=== PATIENT | female | born 1970 | race Caucasian/White ===

== ENCOUNTER 2019-09-16 03:11 | Emergency (ER) | payer OTHER, SELFPAY ==
[2019-09-16 03:12] VITALS: BP 137/66; PULSE 53; RESP 15; TEMP 36.4; O2SAT 100; BMI 23.9
--- NOTE | 2019-09-16 03:28 | ED.VISSUMM ---
- ER Visit Summary Date of Service: 09/16/19 Chief Complaint: Epigastric and upper abdominal pain with nausea and vomiting History of Present Illness: The patient is a 49 F no seen past medical or surgical history. They states around 1900 she is having having upper abdominal pain after eating dinner and having a shot of rum and one beer. She denies any fever or chills. Said recently she is not had any problems. Denies any dysuria. No prior abdominal surgeries. No melena. Physical Examination: Middle-aged female vital signs stable afebrile. H EENT exam unremarkable. Neck nontender no lymphadenopathy. Lungs clear to auscultation bilaterally. Heart regular rhythm rate about 60 no murmur. Abdomen soft nondistended normal bowel sounds no peritoneal signs. She points to the upper abdomen epigastric area but is not reproducibly tender. There is no distention. No hernia or masses. No Bhakta sign no McBurney's point tenderness. Patient moving all 4 extremities. Calves are nontender without edema. Neurologically she is awake alert with no focal motor deficits. Test Results: CBC shows white count 11.4. Hemoglobin 13. No bands. Chemistries normal normal creatinine and gap. Liver enzymes normal. Amylase and lipase both normal. Emergency Department Course and Treatment: Patient with upper abdominal pain with nausea and vomiting. Treated with IV fluids, morphine and Zofran. Labs to be obtained. Repeat exam at 4:05 AM patient started to have some improvement to her nausea. Her labs currently unremarkable on the give her second dose of Zofran and Protonix for possible gastritis. At 4:50AM patient's abdomen is benign. Is nondistended. She really did not have any reproducible tenderness. She still has some cramping. She was given a second dose of morphine and Zofran. She will be reassessed. Much better at 5:33 AM. Abdomen is completely benign. She is comfortable as is her with her being discharged to home. Treatment Plan: Zofran for nausea. Protonix for possible gastritis. And Bentyl for cramping. [place] diet. Plenty of fluids and rest. Follow-up with not improving. Return if worse. Disposition: Discharge Impression: Acute upper abdominal pain with nausea and vomiting Acute viral syndrome Acute gastritis This note was generated with [employer] software. It may contain incorrect words, spelling, and punctuation that were not noted in review of the chart prior to signing ED Disposition - Plan for ED Patient: Disposition: Home or Assisted Living Instructions: ED Abdominal Pain Unkn Cause Fem Prescriptions: Pantoprazole Sodium [Protonix] 40 mg PO BID #20 tab Prescription Printed Ondansetron [Zofran Odt] 4 mg PO Q8H PRN PRN #10 tab PRN Reason: Nausea Prescription Printed Referrals: Humberto Hale MD [STAFF PHYSICIAN] - 3-5 Days if not improving Additional Instructions: Plenty of fluids and rest. Increase your diet slowly as tolerated. Zofran as needed for nausea.
--- NOTE | 2019-09-16 03:31 | EKG12_ITS ---
Test Reason : ABD PAIN Blood Pressure : / mmHG Vent. Rate : 046 BPM Atrial Rate : 046 BPM P-R Int : 176 ms QRS Dur : 090 ms QT Int : 512 ms P-R-T Axes : 065 082 060 degrees QTc Int : 448 ms Sinus bradycardia Otherwise normal ECG Confirmed by FRANCO DIEZ, ERIN ([id number]), online editor MARCELLO BORDEN ([id number]) on 09/17/2019 11:14:47 AM Referred By: GIOVANNI Confirmed By:ERIN GAMEZ MD
[2019-09-16] MEDS: Ondansetron 4 MG/2 ML Vial IV ×2 (03:34→04:08)
[2019-09-16] MEDS: Morphine 4 MG/ML Syringe IV (03:35)
[2019-09-16] MEDS: 0.9% Normal Saline 1,000 ML 1000 ML IV (03:35)
[2019-09-16 03:36] LABS: Absolute Lymphocyte Count 2.19 X10^3/uL (0.83-4.51); Absolute Neutrophil Count 8.6 X10^3/uL (2.0-7.7); Basophil# 0.04 X10^3/uL; Basophil% 0.3 % (0-1); Eosinophil# 0.07 X10^3/uL; Eosinophils% 0.6 % (0-5); Hematocrit 41.2 % (37-47); Hemoglobin 13.4 g/dL (12.0-15.0); Lymphocyte # 2.19 X10^3/ul (4.0); Lymphocyte % 19.2 % (19-41); Mean Corp Hgb Conc 32.5 g/dL (32-36); Mean Corpuscular Hgb 30.5 pg (27.0-32.0); Mean Corpuscular Volume 93.8 fL (81-99); Monocyte# 0.49 X10^3/uL; Monocyte% 4.3 % (0-10); NRBC Flagged by Analyzer 0 % (0-5); Neutrophil # 8.61 X10^3/uL (2.7-7.7); Neutrophil % 75.3 % (47-70); Platelet Count 459 K/mm3 (150-450); RBC Distribution Width CV 12.9 % (11.6-14.6); RBC Distribution Width SD 44.4 fl (35.1-43.9); Red Blood Count 4.39 M/mm3 (4.2-5.4); White Blood Count 11.4 K/mm3 (4.4-11.0)
[2019-09-16 04:00] LABS: AST(SGOT) 18 U/L (15-37); Alanine Aminotransfer ALT/SGPT 20 U/L (13-56); Albumin, Serum 3.6 g/dL (3.2-5.0); Alkaline Phosphatase 45 U/L (45-117); Amylase 40 U/L (25-115); Anion Gap 8 (5-15); BUN 14 mg/dL (7-18); BUN/Creat Ratio 16.1 RATIO (10-20); Chloride 106 mmol/L (98-107); Creatinine, Serum 0.87 mg/dL (0.55-1.02); EST Glomerular Filtration Rate 74 mL/min (>60); Est Glom Filt Rate - Afr Amer 90 mL/min (>60); Estimated Creatinine Clearance 63.22 ml/min; Globulin 3.7 g/dL (2.2-4.2); Glucose 115 mg/dL (74-106); Lipase 112 U/L (73-393); Potassium 3.8 mmol/L (3.5-5.1); Protein, Total 7.3 g/dL (6.4-8.2); Sodium Level 140 mmol/L (136-145)
--- NOTE | 2019-09-16 04:12 | ED.DEP ---
ED Disposition - Plan for ED Patient: Disposition: Home or Assisted Living Instructions: ED Abdominal Pain Unkn Cause Fem Prescriptions: Dicyclomine HCl [Bentyl] 10 mg PO TIDAC #10 cap Prescription Printed Pantoprazole Sodium [Protonix] 40 mg PO BID #20 tab Prescription Printed Ondansetron [Zofran Odt] 4 mg PO Q8H PRN PRN #10 tab PRN Reason: Nausea Prescription Printed Referrals: Humberto Hale MD [STAFF PHYSICIAN] - 3-5 Days if not improving Additional Instructions: Plenty of fluids and rest. Increase your diet slowly as tolerated. Zofran as needed for nausea.
[2019-09-16] MEDS: morphine 8 MG/ML Syringe 6 MG IV (04:43)
[2019-09-16 05:46] VITALS: BP 108/63; PULSE 56; RESP 17; O2SAT 98
[2019-09-16] MEDS: Dicyclomine 10 MG Capsule PO (05:51)
== END 2019-09-16 05:52 | disposition home or self-care (01) ==
PROVIDERS: Emergency Provider Emergency Medicine; PCP Family Medicine
DX: R10.10 Upper abdominal pain, unspecified (principal); R11.2 Nausea with vomiting, unspecified; B34.9 Viral infection, unspecified; K29.00 Acute gastritis without bleeding; R93.2 Abnormal findings on diagnostic imaging of liver and biliary tract; R68.83 Chills (without fever); M54.9 Dorsalgia, unspecified
CPT/HCPCS: 74177; 80048; 80053; 80076; 81001; 82150; 83690; 84703; 85025; 87635; 93005; 96361; 96374; 96375; 96376; 99284; 99285; G2023; J7030; Q9967; A4216; J2405; J3490; U0003

== ENCOUNTER 2019-09-16 17:17 | Emergency (ER) | payer OTHER, SELFPAY ==
[2019-09-16 03:12] VITALS: BMI 23.9
[2019-09-16 17:17] VITALS: BP 143/65; PULSE 52; RESP 16; TEMP 36.2; O2SAT 100; BMI 23.5
--- NOTE | 2019-09-16 17:36 | CT_ITS ---
We are attempting to reach an attending provider to discuss findings. An addendum with communication details will be sent when the communication is complete. STUDY: CT ABDOMEN AND PELVIS WITH CONTRAST REASON FOR EXAM: Female, 49 years old. PT STATED ABDOMINAL PAIN NEAR UMBILICAL REGION, NO HX OF SURGERY RADIATION DOSAGE (If Supplied By Facility): CTDIvol = ( 11.84 ) mGy, DLP = ( 506.95 ) mGycm TECHNIQUE: Transaxial images were obtained from the dome of the diaphragm to the symphysis pubis without oral contrast. Oral and amp; IV Readi-CAT and amp; 100mL Isovue-300 was administered. Sagittal and coronal images were reconstructed. Individualized dose optimization techniques were used for this CT. COMPARISON: None. FINDINGS: The visualized lung bases are unremarkable. The visualized portions of the heart are within normal limits. There is a mottled reticular heterogeneous enhancement pattern of the liver. Normal gallbladder and extrahepatic biliary system. Normal spleen. Normal pancreas. Normal bilateral adrenal glands. Normal right kidney. Normal left kidney. Normal visualized stomach. Normal small intestine. There is a fluid-filled loop of distended sigmoid colon raising the suspicion of sigmoid volvulus. The appendix is visualized and appears normal. Normal abdominal aorta. Normal inferior vena cava. Normal retroperitoneum. Normal urinary bladder. The uterus appears normal. There is a small amount of free fluid in the deep pelvis. There is a small fat-containing umbilical hernia. Normal osseous structures. CT/Abdomen/Pelvis WITH Contrast IMPRESSION: 1. There is a diffuse mottled reticular pattern of the hepatic parenchyma. The differential diagnosis would include but not be limited to passive hepatic congestion, Budd-Chiari syndrome, acute viral hepatitis, and hepatic venoocclusive disease. 2. There is a fluid-filled distended loop of sigmoid colon raising the suspicion of sigmoid volvulus. 3. There is a small amount of free fluid in the pelvis. 4. There is a small fat-containing umbilical hernia. Electronically Signed: Albino Dietrich MD at 20:22 EDT , Service support ,
[2019-09-16] MEDS: 0.9% Normal Saline 1,000 ML 1000 ML IV (17:56)
[2019-09-16] MEDS: Morphine 4 MG/ML Syringe IV ×3 (17:57→23:17)
[2019-09-16] MEDS: Ondansetron 4 MG/2 ML Vial IV ×2 (17:57→21:43)
[2019-09-16 18:10] LABS: Bacteria 0 SEEN /hpf (None Seen)
[2019-09-16 18:18] LABS: Absolute Lymphocyte Count 1.68 X10^3/uL (0.83-4.51); Absolute Neutrophil Count 12.9 X10^3/uL (2.0-7.7); Basophil# 0.03 X10^3/uL; Basophil% 0.2 % (0-1); Eosinophil# 0.01 X10^3/uL; Eosinophils% 0.1 % (0-5); Hematocrit 44.2 % (37-47); Hemoglobin 14.4 g/dL (12.0-15.0); Lymphocyte # 1.68 X10^3/ul (4.0); Lymphocyte % 10.9 % (19-41); Mean Corp Hgb Conc 32.6 g/dL (32-36); Mean Corpuscular Hgb 30.6 pg (27.0-32.0); Mean Platelet Vol. 10.6 fl (6.2-12.0); Monocyte# 0.65 X10^3/uL; Monocyte% 4.2 % (0-10); NRBC Flagged by Analyzer 0 % (0-5); Neutrophil # 12.91 X10^3/uL (2.7-7.7); Neutrophil % 84.1 % (47-70); Platelet Count 356 K/mm3 (150-450); RBC Distribution Width CV 12.7 % (11.6-14.6); RBC Distribution Width SD 44.4 fl (35.1-43.9); White Blood Count 15.4 K/mm3 (4.4-11.0)
[2019-09-16] MEDS: Metoclopramide 10 MG/2 ML Vial IV (18:32)
[2019-09-16 18:35] LABS: AST(SGOT) 16 U/L (15-37); Alanine Aminotransfer ALT/SGPT 21 U/L (13-56); Albumin, Serum 4.2 g/dL (3.2-5.0); Alkaline Phosphatase 51 U/L (45-117); Anion Gap 9 (5-15); BUN 10 mg/dL (7-18); BUN/Creat Ratio 10.9 RATIO (10-20); Calcium,Total 9.2 mg/dL (8.5-10.1); Chloride 106 mmol/L (98-107); Creatinine, Serum 0.92 mg/dL (0.55-1.02); EST Glomerular Filtration Rate 70 mL/min (>60); Est Glom Filt Rate - Afr Amer 84 mL/min (>60); Estimated Creatinine Clearance 59.79 ml/min; Globulin 4.2 g/dL (2.2-4.2); Glucose 109 mg/dL (74-106); Glucose, Dipstick Normal (Normal); Leukocyte Esterase-Dipstick Negative /ul (Negative); Lipase 348 U/L (73-393); Nitrite-Dipstick Negative (Negative); Occult Blood-Urine 25 /ul (Negative); Potassium 3.7 mmol/L (3.5-5.1); Protein, Total 8.4 g/dL (6.4-8.2); Protein-Dipstick 15 mg/dl (Negative); Sodium Level 140 mmol/L (136-145); Specific Gravity, Urine 1.015 (1.002-1.030); Urine Bilirubin Dipstick Negative (Negative); Urine Urobilinogen 1 mg/dl (Normal); Urine pH 6.5 (5.0 - 8.0)
[2019-09-16 19:07] LABS: Color, Urine Yellow (Yellow); Urine Clarity Sl Cloudy (Clear)
[2019-09-16 19:08] LABS: Mucous, Urine 3+ /hpf (<or=2+); Red Blood Cells-Urine 0-5 SEEN /hpf (0-5); Squamous Epithelial Cells - UA 0-5 SEEN /hpf (5-10); White Blood Cells 0-5 SEEN /hpf (0-5)
[2019-09-16 19:11] LABS: Internal QC Validated? YES +Cl - CLEAR BKGD; Pregnancy, Serum, hCG Quali. NEGATIVE Negative
[2019-09-16 19:20] LABS: Ketone-Dipstick 150 mg/dl (Negative)
[2019-09-16 21:00] VITALS: BP 138/69; PULSE 72; RESP 18; O2SAT 99
[2019-09-16 22:30] LABS: Probe Check PASS; Specimen Processing Control PASS
--- NOTE | 2019-09-16 22:34 | ED.DCSUM_ITS ---
- ER Visit Summary Date of Service: 09/16/19 Chief Complaint: Abdominal pain, vomiting History of Present Illness: The patient is a 49 F who reports that she has abdominal pain that began abruptly yesterday. She describes it as a burning, aching pain. Stated 10 at worst and 6 out of 10 currently. Is relieved with remaining still. Is worsened with movement or eating. She is been nausea vomit 70 times. No blood in her emesis. Her last bowel was today. She reports that she passed a very small stool today. Denies any blood in her stool. She has not passed flatus since that time. She denies any dysuria or frequency. No vaginal bleeding or discharge. Patient denies sick contacts. Has not been camping out of the country. No possible bad food exposure. She does drink well water, but others at home do as well and they are not ill. No recent antibiotic use. No spicy or fatty food intolerance. She is never had anything like this before. Physical Examination: Vitals: Stable. Afebrile. General: Well-nourished and well-developed. Head: Normocephalic atraumatic. Neck: Supple, no lymphadenopathy. No JVD. Nontender. Cardiovascular: Regular rate and rhythm. No murmurs. Respiratory: No respiratory distress. Clear to auscultation bilaterally. Abdominal: Soft, moderate epigastric and mild periumbilical pain, nondistended, hypoactive bowel sounds. No guarding, rebound, or peritoneal signs. Back: Nontender. Extremities: Nontender, no edema. Skin: Normal color, no rash. Neurologic: Alert and oriented ?3. Cranial nerves II through XII are intact. Normal strength and sensation. Psych: Normal affect. Test Results: CBC shows a white count of 15.4 with 84 segs neutrophils and 11 lymphocytes. Chem-7 shows glucose 109. LFTs show total protein of 8.4. Lipase is 348. UA is negative. test is negative. Clinical Impression(s) from Imaging Studies Abdomen/Pelvis CT 09/16/19 17:36 IMPRESSION: 1. There is a diffuse mottled reticular pattern of the hepatic parenchyma. The differential diagnosis would include but not be limited to passive hepatic congestion, Budd-Chiari syndrome, acute viral hepatitis, and hepatic venoocclusive disease. 2. There is a fluid-filled distended loop of sigmoid colon raising the suspicion of sigmoid volvulus. 3. There is a small amount of free fluid in the pelvis. 4. There is a small fat-containing umbilical hernia. Electronically Signed: Albino Dietrich MD at 20:22 EDT , Service support , ADDENDUM: 09/16/192047 IMPRESSION: 1. There is a diffuse mottled reticular pattern of the hepatic parenchyma. The differential diagnosis would include but not be limited to passive hepatic congestion, Budd-Chiari syndrome, acute viral hepatitis, and hepatic venoocclusive disease. 2. There is a fluid-filled distended loop of sigmoid colon raising the suspicion of sigmoid volvulus. 3. There is a small amount of free fluid in the pelvis. 4. There is a small fat-containing umbilical hernia. N.B. : The above information has been verbally conveyed by Albino Dietrich MD to Montrell Bowie MD, , on 09/16/2019 20:41:21 (ET). Electronically Signed: Albino Dietrich MD at 20:22 EDT , Service support , Laboratory Data 09/16/19 09/16/19 09/16/19 18:00 18:00 18:00 WBC 15.4 H RBC 4.70 Hgb 14.4 Hct 44.2 MCV 94.0 MCH 30.6 MCHC 32.6 RDW Std Deviation 44.4 H RDW Coeff of Cristóbal 12.7 Plt Count 356 MPV 10.6 Immature Gran % (Auto) 0.500 Neut % (Auto) 84.1 H Lymph % (Auto) 10.9 L [place] % (Auto) 4.2 Eos % (Auto) 0.1 Baso % (Auto) 0.2 Absolute Neuts (auto) 12.9 H Absolute Lymphs (auto) 1.68 Nucleated RBC % 0 Sodium 140 Potassium 3.7 Chloride 106 Carbon Dioxide 25.0 Anion Gap 9 BUN 10 Creatinine 0.92 Estim Creat Clear Calc 59.79 Est GFR (MDRD) Af Amer 84 Est GFR (MDRD) Non-Af 70 BUN/Creatinine Ratio 10.9 Glucose 109 H Calcium 9.2 Total Bilirubin 0.60 AST 16 ALT 21 Alkaline Phosphatase 51 Total Protein 8.4 H Albumin 4.2 Globulin 4.2 Albumin/Globulin Ratio 1.0 Lipase 348 Serum , Qual NEGATIVE Urine Color Urine Clarity Urine pH Ur Specific [place] Urine Protein Urine Glucose (UA) Urine Ketones Urine Occult Blood Urine Nitrite Urine Bilirubin Urine Urobilinogen Ur Leukocyte Esterase Urine RBC Urine WBC Ur Squamous Epith Cells Urine Bacteria Urine Mucus COVID-19 ([facility]UG[facility]IA) 09/16/19 09/16/19 18:00 21:12 WBC RBC Hgb Hct MCV MCH MCHC RDW Std Deviation RDW Coeff of Cristóbal Plt Count MPV Immature Gran % (Auto) Neut % (Auto) Lymph % (Auto) [place] % (Auto) Eos % (Auto) Baso % (Auto) Absolute Neuts (auto) Absolute Lymphs (auto) Nucleated RBC % Sodium Potassium Chloride Carbon Dioxide Anion Gap BUN Creatinine Estim Creat Clear Calc Est GFR (MDRD) Af Amer Est GFR (MDRD) Non-Af BUN/Creatinine Ratio Glucose Calcium Total Bilirubin AST ALT Alkaline Phosphatase Total Protein Albumin Globulin Albumin/Globulin Ratio Lipase Serum , Qual Urine Color Yellow Urine Clarity Sl Cloudy Urine pH 6.5 Ur Specific [place] 1.015 Urine Protein 15 H Urine Glucose (UA) Normal Urine Ketones 150 H Urine Occult Blood 25 H Urine Nitrite Negative Urine Bilirubin Negative Urine Urobilinogen 1 H Ur Leukocyte Esterase Negative Urine RBC 0-5 SEEN Urine WBC 0-5 SEEN Ur Squamous Epith Cells 0-5 SEEN Urine Bacteria 0 SEEN Urine Mucus 3+ COVID-19 ([facility]) Negative Clinical Impression(s) from Imaging Studies Abdomen/Pelvis CT 09/16/19 17:36 IMPRESSION: 1. There is a diffuse mottled reticular pattern of the hepatic parenchyma. The differential diagnosis would include but not be limited to passive hepatic congestion, Budd-Chiari syndrome, acute viral hepatitis, and hepatic venoocclusive disease. 2. There is a fluid-filled distended loop of sigmoid colon raising the suspicion of sigmoid volvulus. 3. There is a small amount of free fluid in the pelvis. 4. There is a small fat-containing umbilical hernia. Electronically Signed: Albino Dietrich MD at 20:22 EDT , Service support , ADDENDUM: 09/16/192047 IMPRESSION: 1. There is a diffuse mottled reticular pattern of the hepatic parenchyma. The differential diagnosis would include but not be limited to passive hepatic congestion, Budd-Chiari syndrome, acute viral hepatitis, and hepatic venoocclusive disease. 2. There is a fluid-filled distended loop of sigmoid colon raising the suspicion of sigmoid volvulus. 3. There is a small amount of free fluid in the pelvis. 4. There is a small fat-containing umbilical hernia. N.B. : The above information has been verbally conveyed by Albino Dietrich MD to Montrell Bowie MD, , on 09/16/2019 20:41:21 (ET). Electronically Signed: Albino Dietrich MD at 20:22 EDT , Service support , Emergency Department Course and Treatment: Patient was was treated with morphine and Zofran IV. She continued to complain of nausea. She was given Reglan IV and is resting more comfortably. Treatment Plan: Patient was discussed Dr. Kathleen. He reviewed the CT and feels that the patient would benefit from transfer to a center with supervisor labor gang. The patient was discussed with the supervisor labor gang at [facility] who would like her go to the medicine service. She was discussed with Dr. Lazo who has accepted her. Disposition: Transferred in improved condition. Impression: 1. Abdominal pain, uncertain cause. 2. Mottled hepatic parenchyma. 3. Possible sigmoid volvulus. This note was generated with [employer] software. It may contain incorrect words, spelling, and punctuation that were not noted in review of the chart prior to signing ED Disposition - Plan for ED Patient: Referrals: Mandeep Bhatt MD [Primary Care Provider] -
[2019-09-16 23:00] VITALS: BP 126/74; PULSE 64; RESP 18; O2SAT 99
[2019-09-16] MEDS: Metoclopramide 10 MG/2 ML Vial 5 MG IV (23:15)
--- NOTE | 2019-09-17 00:03 | ED.RN ---
report called to [facility] @ [facility]
== END 2019-09-16 23:15 | disposition short-term general hospital (02) ==
LOC: ED 18:52
PROVIDERS: Emergency Provider Emergency Medicine; PCP Family Medicine
DX: R93.2 Abnormal findings on diagnostic imaging of liver and biliary tract (principal); R10.9 Unspecified abdominal pain; R11.2 Nausea with vomiting, unspecified; R68.83 Chills (without fever); M54.9 Dorsalgia, unspecified
CPT/HCPCS: 74177; 80053; 81001; 83690; 84703; 85025; 87635; 96361; 96374; 96375; 96376; 99284; G2023; J7030; Q9967; A4216; J2405; U0003

== ENCOUNTER → 2022-02-02 | Outpatient (CLI) | payer OTHER, SELFPAY ==
[2022-02-08 16:28] LABS: HPV APTIMA, High Risk Negative (Negative)
== END | disposition home or self-care (01) ==
PROVIDERS: PCP Family Medicine; Visit Provider Obstetrics & Gynecology
DX: Z12.4 Encounter for screening for malignant neoplasm of cervix (principal)
CPT/HCPCS: 87624; 88175; G0145

== ENCOUNTER → 2024-04-29 | Outpatient (CLI) | payer OTHER, SELFPAY ==
[2024-04-29 16:41] LABS: Absolute Lymphocyte Count 3.06 X10^3/uL (0.83-4.51); Basophil# 0.05 X10^3/uL; Basophil% 0.6 % (0-1); Eosinophil# 0.17 X10^3/uL; Eosinophils% 1.9 % (0-5); Hemoglobin 12.7 g/dL (12.0-15.0); Lymphocyte # 3.06 X10^3/ul (0.83-4.51); Lymphocyte % 34.6 % (19-41); Mean Corp Hgb Conc 31.8 g/dL (32-36); Mean Corpuscular Hgb 29.2 pg (27.0-32.0); Mean Platelet Vol. 10.1 fl (6.2-12.0); Monocyte# 0.55 X10^3/uL; Monocyte% 6.2 % (0-10); NRBC Flagged by Analyzer 0 % (0-5); Neutrophil # 4.99 X10^3/uL (2.7-7.7); Neutrophil % 56.4 % (47-70); Platelet Count 367 K/mm3 (150-450); RBC Distribution Width CV 12.9 % (11.6-14.6); RBC Distribution Width SD 44.1 fl (35.1-43.9); Red Blood Count 4.35 M/mm3 (4.2-5.4); White Blood Count 8.9 K/mm3 (4.4-11.0)
[2024-04-29 17:14] LABS: Follicle Stimulating Hormone 9.1 mIU/mL; T4 Free Direct 0.88 ng/dL (0.76-1.46)
== END | disposition home or self-care (01) ==
LOC: LAB 15:28
PROVIDERS: PCP Family Medicine; Referring Provider Family Medicine; Visit Provider Family Medicine
DX: R53.83 Other fatigue (principal)
CPT/HCPCS: 36415; 82670; 83001; 84439; 84443; 85025